=== PATIENT | male | born 1940 | race Caucasian/White ===

== ENCOUNTER → 2016-06-08 | Outpatient (CLI) | payer MEDICARE, BC ==
[~2016-06-08] MED LIST: ALLO300T74 PO; ALPR0.25 PO; ASPI-623 PO; CHOL200020 PO; CITA-49 PO; DILT120C47 PO; FAMO-137 PO; FURO40TA5 PO; INSU100V27 SQ; INSU100V28 SQ; MAGN400T25 PO; NITR0.4T38 SL; PRAV40TA46 PO
--- NOTE | 2016-06-09 14:36 | ECHOF ---
DATE 06/08/2016 REFERRING PHYSICIAN Rylan Cohen MD INDICATION Dyspnea, wheezing, [address] aortic valve and coronary artery disease. TECHNICAL QUALITY: Technically good 2D, M-mode and Doppler echocardiographic images were submitted for interpretation. FINDINGS 1. CARDIAC CHAMBERS. Left atrium is enlarged measures 5.5 cm. Right ventricle appears borderline enlarged with mild hypokinesis. Aortic root diameter is normal. 2. LV FUNCTION. Borderline concentric LVH. [employer] measured 13 mm in the posterior and septal steward. Wall motion analysis is abnormal due to inferior posterior wall hypokinesis. Septal dysmotility is present. LV systolic dysfunction of a mild degree is present. Ejection fraction measures 51%. Diastolic dysfunction grade II/IV is suggested based on E/A ratio of 2.5, E/E' of 23. 3. VALVES. 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 No structural abnormalities were identified. Mitral valve exhibits annular calcification. Valve excursion is normal. Leaflet sclerosis is present. Tricuspid valve structure and motion appear normal. Normal valve excursion. 4. DOPPLER. Doppler shows mild mitral regurgitation, mild tricuspid regurgitation, trace aortic regurgitation, trace physiologic aortic regurgitation, and trace pulmonic insufficiency. Normal flow velocities throughout are measured. Normal aortic valve prosthetic function. Peak flow velocity of 1.8 m/sec with peak and mean pressure gradient of 13 and 9 mmHg. No evidence of intracardiac masses, thrombi, vegetations or demonstrable shunts. IMPRESSION 1. Left atrial enlargement. 2. Mild LV systolic dysfunction, EF measures 51% with regional wall motion abnormality involving the inferior posterior wall and septum as described above. 3. Diastolic dysfunction Grade II/IV. 4. 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 5. Mitral annular calcification with mild mitral regurgitation. 6. Mild tricuspid regurgitation. 7. Moderate pulmonary hypertension, systolic PA pressure estimated at 54 mmHg. 8. Borderline RV enlargement with mild hypokinesis. 9. Mild concentric LVH. 10. No evidence of pericardial effusion, intracardiac masses, thrombi, vegetations or shunts. MTDD
== END ==
LOC: IMA 14:30
PROVIDERS: ATTEND Family Medicine
DX: I08.1 Rheumatic disorders of both mitral and tricuspid valves (principal); I27.2 Other secondary pulmonary hypertension; I50.30 Unspecified diastolic (congestive) heart failure; Z95.2 Presence of prosthetic heart valve; R06.2 Wheezing; R06.00 Dyspnea, unspecified
CPT/HCPCS: 93306